=== PATIENT | male | born 1990 | race Caucasian/White ===

== ENCOUNTER 2019-04-24 17:36 | Emergency (ER) | payer OTHER ==
--- NOTE | 2019-04-24 19:59 | ED Physician Documentation ---
PD HPI DYSPNEA - Stated complaint Stated Complaint: SOA - Chief complaint Chief Complaint: Resp - History obtained from History obtained from: Patient - History of Present Illness Timing - onset: How many months ago ("few months", per patient) Timing - details: Intermittant Pain level max: 0 Pain level now: 0 Associated symptoms: No: Fever, Cough, Wheezing, Chest pain / discomfort Recently seen: Not recently seen - Additional information Additional information: c/o "few months" of intermittent dyspnea, describes as difficulty "taking a deep breath", "difficulty yawning". asked why he came to ED tonight for this, he says he [place] medical [place] [employer] and was told to go to the emergency department Review of Systems Constitutional: denies: Fever Cardiac: reports: Reviewed and negative Respiratory: reports: Dyspnea. denies: Cough, Hemoptysis, Wheezing PD PAST MEDICAL HISTORY - Past Medical History Past Medical History: No Cardiovascular: None Respiratory: None Neuro: None Endocrine/Autoimmune: None GI: None : None HEENT: None Psych: None Musculoskeletal: None Derm: None - Past Surgical History Past Surgical History: No - Present Medications Home Medications: Ambulatory Orders Medication Instructions Recorded Confirmed No Known Home Medications 04/24/19 04/24/19 - Allergies Allergies/Adverse Reactions: Allergies Allergy/AdvReac Type Severity Reaction Status Date / Time No Known Drug Allergies Allergy Verified 04/24/19 17:40 - Social History Does the pt smoke?: No Smoking Status: Never smoker Does the pt drink ETOH?: Yes Does the pt have substance abuse?: No - Immunizations Immunizations are current?: Yes - POLST Patient has POLST: No PD ED PE NORMAL - Vitals Vital signs reviewed: Yes - General General: Alert and oriented X 3, No acute distress, Well developed/nourished - Cardiac Cardiac: RRR, No murmur - Respiratory Respiratory: No respiratory distress, Clear bilaterally Results - Vitals Vitals: Vital Signs - 24 hr 04/24/19 04/24/19 04/24/19 17:38 20:39 21:26 Temperature 36.8 C 36.6 C Heart Rate 75 77 75 Respiratory 18 14 18 Rate Blood Pressure 155/84 H 123/87 H O2 Saturation 100 99 Oxygen O2 Source Room air - Rads (name of study) chest xray Radiology: Prelim report reviewed, See rad report PD MEDICAL DECISION MAKING - ED course Complexity details: reviewed results, re-evaluated patient, considered differential, d/w patient Departure - Departure Disposition: 01 Home, Self Care Clinical Impression: Dyspnea Condition: Good Instructions: ED Dyspnea Shortness of Breath Comments: You are describing "sighing dyspnea", which is a recognized symptom in the medical literature but there is no cause nor treatment. Additionally, there is no test for this, and so you need to follow up with your primary care provider, as further tests to investigate other causes might be indicated. Discharge Date/Time: 04/24/19 21:27
[2019-04-24] MEDS ORDERED: ALBUTEROL NEB 2.5 MG/3 ML INH STA (20:05)
[2019-04-24 21:27] VITALS: BP 123/87
--- NOTE | 2019-04-25 07:59 | XRAY Report ---
Reason: dyspnea Procedure Date: 04/24/2019 Accession Number: [id number] / [id number] Procedure: XR - Chest 2 View X-Ray CPT Code: 77135 Final Report FULL RESULT: EXAM: CHEST RADIOGRAPHY EXAM DATE: 04/24/2019 08:28 PM. CLINICAL HISTORY: Dyspnea. COMPARISON: None. TECHNIQUE: 2 views. FINDINGS: Lungs/Pleura: No focal opacities evident. No pleural effusion. No pneumothorax. Normal volumes. Mediastinum: Heart and mediastinal contours are unremarkable. Other: None. IMPRESSION: Normal 2-view chest radiography. [facility]
== END 2019-04-24 21:27 | disposition home or self-care (01) ==
LOC: ED 17:36
DX: R06.09 Other forms of dyspnea (principal)
CPT/HCPCS: 71046; 94640; 99283

== ENCOUNTER 2021-04-18 10:41 | Emergency (ER) | payer OTHER ==
[2021-04-18] MEDS ORDERED: lidocaine 1% 20 ML MDV SUBQ ONE (10:46)
[2021-04-18 10:54] VITALS: BP 134/86
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
== END 2021-04-18 11:13 | disposition home or self-care (01) ==
LOC: EDUNIT# → ED 10:41
DX: S71.112A Laceration without foreign body, left thigh, initial encounter (principal); W26.0XXA Contact with knife, initial encounter; Y93.89 Activity, other specified; Y99.1 Military activity
CPT/HCPCS: 12001; 99283